=== PATIENT | female | born 1955 | race Caucasian/White ===

== ENCOUNTER 2018-10-25 17:07 | Emergency (ER) | payer MEDICAID ==
[~2018-10-25] VITALS: Ht 165.1 cm; Wt 61.2 kg
[2018-10-25] MEDS ORDERED: TRAM50TA2 PO (17:36)
[2018-10-25] MEDS ORDERED: LISI-603 PO (17:36)
[2018-10-25] MEDS ORDERED: METO25TA6 PO (17:36)
--- NOTE | 2018-10-25 17:55 | NUR ---
CALLED [facility] OFFICE FOR CONSULT. LEFT A MESSAGE.
--- NOTE | 2018-10-25 18:00 | NUR ---
AMOL NOBLE TALKED TO DR. DONALD OVER THE PHONE.
--- NOTE | 2018-10-25 18:08 | NUR ---
PT AND FAMILY MEMBERS ELOPED FROM HOSPITAL BEFORE SIGNING THE D/C INSTRUCTION. PT AND SON AND DAUGHTER SAID THAT WILL BE GOING TO [facility].
== END 2018-10-25 18:14 | disposition home or self-care (01) ==
LOC: ER 17:09
DX: H33.22 Serous retinal detachment, left eye (principal); Z79.899 Other long term (current) drug therapy
CPT/HCPCS: A4663